=== PATIENT | male | born 1975 | race Caucasian/White ===

== ENCOUNTER 2021-04-01 09:04 | Emergency (ER) | payer OTHER ==
[2021-04-01 09:38] VITALS: BP 141/100; PULSE 98; TEMP 98.8; BMI 23.1
[2021-04-01] MEDS ORDERED: CYCLOBENZAPRINE HCL 10 MG TABLET (FP) PO ONE (09:43)
[2021-04-01] MEDS ORDERED: KETOROLAC TROMETHAMINE 30 MG/1 ML VIAL IM ONE (09:43)
[2021-04-01] MEDS ORDERED: KETOROLAC TROMETHAMINE 30 MG/1 ML VIAL ONE (09:56)
[2021-04-01] MEDS ORDERED: CYCLOBENZAPRINE HCL 10 MG TABLET (FP) ONE (09:56)
== END 2021-04-01 12:30 | disposition home or self-care (01) ==
LOC: JER 09:04
PROC: 3E0233Z Introduction of Anti-inflammatory into Muscle, Percutaneous Approach (ICD-10-PCS; principal; 2021-04-01)
DX: M54.2 Cervicalgia (principal)
CPT/HCPCS: 72040-TC; 72050-TC-FY; 99284-25